=== PATIENT | male | born 1935 | race Caucasian/White ===

== ENCOUNTER 2022-02-24 00:11 | Inpatient (IN) | payer MEDICARE ==
[2022-02-24] VITALS (72 sets, daily range): BP systolic 76–201; BP diastolic 33–127
[~2022-02-24] VITALS: Ht 177.8 cm; Wt 58.1 kg
--- NOTE | 2022-02-24 00:13 | NUR ---
FREDO LI [phone]
--- NOTE | 2022-02-24 00:18 | NUR ---
[id number] FROM SNF FOR FAILURE TO THRIVE. REFUSING TO EAT AND DRINK COVID POSITIVE 02/18/22 W/ LEFT LEG PAIN S/P DVT. PATIENT ALERT AND ORIENTED X2/3 BROUGHT IN BY STRETCHER. IN BED 06 ON MONITOR AND POX AWAITING MD FERNANDO.
[2022-02-24] MEDS ORDERED: DILTIAZEM HCL 50 MG IV ONE (00:22)
--- NOTE | 2022-02-24 00:25 | NUR ---
COVID SWAB DONE AND SENT TO LAB
--- NOTE | 2022-02-24 00:25 | NUR ---
BLOOD COLLECTED AND SENT TO LAB
--- NOTE | 2022-02-24 00:25 | NUR ---
EMT AT BEDSIDE FOR EKG
--- NOTE | 2022-02-24 00:28 | NUR ---
BLOOD CULTURES COLLECTED AND SENT TO LAB
[2022-02-24] MEDS ORDERED: DILTIAZEM HCL 50 MG IV IV ONE (00:30)
[2022-02-24] MEDS ORDERED: IV NS 0.9% 500 ML BAG IV ONE (00:30)
[2022-02-24] MEDS ORDERED: HYDROCODONE/APAP 5/325MG TABLET ONE (00:36)
[2022-02-24] MEDS ORDERED: DILTIAZEM HCL 25 MG IV ONE (00:43)
[2022-02-24 00:46] LABS: BASOPHILS % (AUTO) 0.3 % (0.0-2.0); EOSINOPHILS % (AUTO) 0.2 % (0.0-6.0); HEMATOCRIT 46 % (39-51); HEMOGLOBIN 13.8 g/dL (13.5-17.5); LYMPHOCYTES # (AUTO) 0.4 K/uL (0.8-4.8); LYMPHOCYTES % (AUTO) 6.8 % (20.0-44.0); MEAN CORPUSCULAR HGB CONC 30 g/dl (31.0-36.0); MEAN CORPUSCULAR VOLUME 96 fL (80-96); MONOCYTES # (AUTO) 0.3 K/uL (0.1-1.30); MONOCYTES % (AUTO) 4.6 % (2.0-12.0); NEUTROPHILS # (AUTO) 5.7 K/uL (1.8-8.9); NEUTROPHILS % (AUTO) 88.1 % (43.0-81.0); PLATELET COUNT (AUTO) 229 K/uL (150-450); RED BLOOD CELL COUNT(AUTO) 4.74 MIL/uL (4.5-6.0); WHITE BLOOD COUNT (AUTO) 6.4 K/uL (4.3-11.0)
--- NOTE | 2022-02-24 00:54 | NUR ---
CARDIZEM DRIP INITIATED AT 5MG/HR PER PROTOCOL FOR HR CONTROL.
[2022-02-24] MEDS ORDERED: HYDROCODONE/APAP 5/325MG TABLET PO ONE (01:00)
[2022-02-24] MEDS ORDERED: DILTIAZEM HCL IV 125 MG in IV NS 0.9% 100 ML IV PRN (01:00)
--- NOTE | 2022-02-24 01:00 | NUR ---
CARDIZEM DRIP TITRATED UP TO 10MG/HR PER PROTOCOL FOR HR 158
[2022-02-24 01:02] LABS: ALANINE AMINOTRANSFERASE 91 U/L (12-78); ALBUMIN 3.3 g/dL (3.4-5.0); ALKALINE PHOSPHATASE 191 U/L (46-116); ASPARTATE AMINOTRANSFERASE 105 U/L (15-37); BILIRUBIN,DIRECT 1.3 mg/dL (0.0-0.2); BILIRUBIN,TOTAL 2.3 mg/dL (0.2-1.0); CALCIUM, SERUM 9.1 mg/dL (8.5-10.1); CARBON DIOXIDE 26 mmol/L (21-32); CHLORIDE 108 mmol/L (98-107); CREATININE 1.1 mg/dL (0.6-1.3); GLUCOSE 95 mg/dL (74-106); POTASSIUM 4.7 mmol/L (3.5-5.1); SODIUM SERUM 143 mmol/L (136-145); TOTAL PROTEIN, SERUM 7.6 g/dL (6.4-8.2); UREA NITROGEN, BLOOD 26 mg/dL (7-18)
--- NOTE | 2022-02-24 01:05 | NUR ---
CARDIZEM DRIP TITRATED UP TO 15MG/HR PER PROTOCOL FOR HR 151
[2022-02-24] MEDS ORDERED: ASPIRIN 300 MG/SUPP.RECT RC ONE ×2 (01:30→01:49)
--- NOTE | 2022-02-24 01:32 | NUR ---
URINE COLLECTED AND SENT TO LAB
--- NOTE | 2022-02-24 02:16 | NUR ---
STAT RAD PAGED
[2022-02-24] MEDS ORDERED: HYDROCODONE/APAP 5/325MG TABLET PO PRN (02:30)
[2022-02-24] MEDS ORDERED: Z GUARD REMEDY 4 OZ OINT TP PRN (02:30)
[2022-02-24] MEDS ORDERED: MAGNESIUM HYDROXIDE 30 ML UDC PO PRN (02:30)
[2022-02-24] MEDS ORDERED: ONDANSETRON HCL/PF 4 MG/2 ML VIAL IVP PRN (02:30)
[2022-02-24] MEDS ORDERED: MAG HYDROX/AL HYDROX/SIMETH 30 ML UDC PO PRN (02:30)
[2022-02-24] MEDS ORDERED: ACETAMINOPHEN 325 MG TABLET PO PRN (02:30)
[2022-02-24] MEDS ORDERED: ZOLPIDEM TARTRATE 5 MG TABLET PO PRN (02:30)
--- NOTE | 2022-02-24 02:31 | NUR ---
CHURN DRILLER AT PT'S BEDSIDE
[2022-02-24 02:50] LABS: BILIRUBIN,URINE SMALL (NEGATIVE); COLOR,URINE DARK YELLOW (YELLOW); LEUKOCYTE ESTERASE ,URINE NEGATIVE (NEGATIVE); NITRITE, URINE NEGATIVE (NEGATIVE); PH,URINE 5.5 (5.0-8.0); PROTEIN,URINE TRACE mg/dl (NEGATIVE); UGLUCOSE NEGATIVE (NEGATIVE)
[2022-02-24 02:52] LABS: BACTERIA,URINE Rare /HPF (None Seen); RBC,URINE 0-2 /HPF (0-2); SQUAMOUS EPITHELIAL CELL,UR Moderate /HPF (None Seen); WBC,URINE 0-2 /HPF (0-3)
[2022-02-24] MEDS ORDERED: ENOXAPARIN SODIUM 60 MG/0.6 ML DISP.SYRIN SQ ONE (03:00)
[2022-02-24] MEDS ORDERED: OXYC10TA49 PO (03:11)
[2022-02-24] MEDS ORDERED: ASPI-1420 PO (03:11)
[2022-02-24] MEDS ORDERED: SENN-18 PO (03:11)
[2022-02-24] MEDS ORDERED: METO25TA6 PO (03:11)
[2022-02-24] MEDS ORDERED: APIX5TAB PO (03:11)
[2022-02-24] MEDS ORDERED: POLY119P17 PO (03:11)
[2022-02-24] MEDS ORDERED: GABA-536 PO (03:11)
[2022-02-24] MEDS ORDERED: PANT40TA2 PO (03:11)
[2022-02-24] MEDS ORDERED: ONDA4TAB5 PO (03:11)
[2022-02-24] MEDS ORDERED: BISA10SU61 RC (03:11)
[2022-02-24] MEDS ORDERED: SODI650T PO (03:11)
[2022-02-24] MEDS ORDERED: MAGN400O6 PO (03:11)
[2022-02-24] MEDS ORDERED: ATOR80TA PO (03:11)
[2022-02-24] MEDS ORDERED: NA P133E RC (03:11)
[2022-02-24] MEDS ORDERED: DEXT37.54 PO (03:11)
[2022-02-24] MEDS ORDERED: OXYC5CAP18 PO (03:11)
--- NOTE | 2022-02-24 03:12 | NUR ---
REPORT GIVEN TO DONTAE
--- NOTE | 2022-02-24 03:15 | NUR ---
CRITICAL : 499 TROPONIN, AWARE
--- NOTE | 2022-02-24 03:26 | NUR ---
PT TRANSPORTED TO ROOM 253 ON CARDIAC PER ACLS. CARDIZEM 15MG/HR INFUSING AT LF.
[2022-02-24] MEDS: DILTIAZEM HCL IV 125 MG in IV NS 0.9% 100 ML IV PRN ×3 (03:35→16:01)
--- NOTE | 2022-02-24 07:30 | NUR ---
ICU/RN PT IS RESTING .ON 3L N/C SAT O2-100%.YV-W-TZP-140-160 BPM. ON CARDIZEM DRIP.AFEBRILE .NO PAIN REPORTED AT THIS TIME.PT IS VERY WEAK.HAS BODY WOUNDS.
--- NOTE | 2022-02-24 07:38 | NUR ---
WOUND CARE CONSULT: REVIEWED CHART, NURSING DOCUMENTATION AND PHOTOS WHICH INDICATE MULTIPLE WOUNDS PRESENT ON ADMISSION INCLUDING LEFT ELBOW SCAB, STAGE 3 ULCER TO RT BUTTOCK, LEFT LATERAL LEG OPEN WOUND, LEFT ANKLE AND TOE WOUNDS ALL PRESENT ON ADMISSION. DR SONAL SANCHEZ CALLED FOR SURGICAL CONSULT AND DR HERRERA CALLED FOR DPM CONSULT. ALL SKIN PROTECTION MEASURES DISCUSSED WITH NURSING STAFF. FIRST STEP LOW AIRLOSS MATTRESS IS ON ORDER. MD IN AGREEMENT WITH PLAN OF CARE.
[2022-02-24] MEDS ORDERED: HYDROGEL DRESSING 90 GM TUBE TP PRN (08:00)
[2022-02-24] MEDS: PANTOPRAZOLE 40 MG TABLET.DR PO SCH (08:19)
[2022-02-24] MEDS: ASPIRIN EC 81 MG TABLET.DR PO SCH (08:19)
[2022-02-24] MEDS: APIXABAN 5 MG TABLET PO SCH ×2 (08:22→16:54)
[2022-02-24] MEDS ORDERED: PANTOPRAZOLE 40 MG TABLET.DR PO SCH (09:00)
[2022-02-24] MEDS: GABAPENTIN 400 MG CAPSULE PO SCH ×4 (09:10→21:01)
[2022-02-24] MEDS: HYDROGEL DRESSING 90 GM TUBE TP SCH (09:10)
[2022-02-24] MEDS ORDERED: APIXABAN 5 MG TABLET PO SCH (09:30)
[2022-02-24] MEDS: METOPROLOL TARTRATE 50 MG TABLET PO SCH ×3 (11:38→19:00)
[2022-02-24] MEDS ORDERED: ENOXAPARIN SODIUM 30 MG/0.3 ML DISP.SYRIN SQ SCH (21:00)
[2022-02-24] MEDS ORDERED: ATORVASTATIN 40 MG TABLET PO SCH (22:00)
--- NOTE | 2022-02-24 23:32 | NUR ---
MED NOTE: CARDIZEM DRIP TITRATED DOWN AND CURRENTLY ON HOLD. PT HEART RATE 70-80 BPM STILL AFIB.
[2022-02-25] VITALS (34 sets, daily range): BP systolic 85–151; BP diastolic 34–78
[2022-02-25 03:12] LABS: BASOPHILS % (AUTO) 0.1 % (0.0-2.0); HEMATOCRIT 33 % (39-51); HEMOGLOBIN 10.6 g/dL (13.5-17.5); LYMPHOCYTES # (AUTO) 0.4 K/uL (0.8-4.8); LYMPHOCYTES % (AUTO) 5.2 % (20.0-44.0); MEAN CORPUSCULAR HGB CONC 32 g/dl (31.0-36.0); MEAN CORPUSCULAR VOLUME 94 fL (80-96); MONOCYTES # (AUTO) 0.5 K/uL (0.1-1.30); MONOCYTES % (AUTO) 7.8 % (2.0-12.0); NEUTROPHILS % (AUTO) 86.9 % (43.0-81.0); PLATELET COUNT (AUTO) 236 K/uL (150-450); RED BLOOD CELL COUNT(AUTO) 3.55 MIL/uL (4.5-6.0); WHITE BLOOD COUNT (AUTO) 6.9 K/uL (4.3-11.0)
[2022-02-25 03:40] LABS: CHOLESTEROL 84 mg/dL (<200); HDL CHOLESTEROL 27 mg/dL (40-60); LDL 55 mg/dL (0-99); THYROID STIMULATING HORMONE 6.274 uIU/mL (0.358-3.74); TRIGLYCERIDES 97 mg/dL (30-150)
[2022-02-25 04:26] LABS: ALANINE AMINOTRANSFERASE 123 U/L (12-78); ALBUMIN 2.4 g/dL (3.4-5.0); ALKALINE PHOSPHATASE 154 U/L (46-116); ASPARTATE AMINOTRANSFERASE 115 U/L (15-37); BILIRUBIN,DIRECT 1.3 mg/dL (0.0-0.2); CALCIUM, SERUM 8.5 mg/dL (8.5-10.1); CARBON DIOXIDE 23 mmol/L (21-32); CHLORIDE 112 mmol/L (98-107); CREATININE 1.2 mg/dL (0.6-1.3); GLUCOSE 144 mg/dL (74-106); MAGNESIUM 2.6 mg/dL (1.8-2.4); PHOSPHORUS 3.3 mg/dL (2.5-4.9); POTASSIUM 4.1 mmol/L (3.5-5.1); SODIUM SERUM 145 mmol/L (136-145); TOTAL PROTEIN, SERUM 5.9 g/dL (6.4-8.2); UREA NITROGEN, BLOOD 35 mg/dL (7-18)
[2022-02-25] MEDS: METOPROLOL TARTRATE 50 MG TABLET PO SCH ×4 (06:16→17:16)
--- NOTE | 2022-02-25 08:10 | NUR ---
ICU/RN PT IS ON 3L N/C SAT O2-100%.V/S STABLE,AFEBRILE.NO PAIN REPORTED AT THIS TIME.A FIB ON MONITOR 90-110 BPM. OFF CARDIZEM DRIP.PT REFUSED TO EAT BREAKFAST. INCONTINENT IN DIAPER.POSITIVE FOR DVT ON BLE .LEFT LOWER LEG WOUNDS COVERED WITH DRESSING.LABS REVIEW.MD AWARE.REPOSITION FOR COMFORT.CONTINUE MONITORING,
[2022-02-25] MEDS: PANTOPRAZOLE 40 MG TABLET.DR PO SCH (08:13)
[2022-02-25] MEDS: GABAPENTIN 400 MG CAPSULE PO SCH ×4 (08:13→21:00)
[2022-02-25] MEDS: APIXABAN 5 MG TABLET PO SCH ×2 (08:13→16:30)
[2022-02-25] MEDS: ASPIRIN EC 81 MG TABLET.DR PO SCH (08:13)
[2022-02-25] MEDS: HYDROGEL DRESSING 90 GM TUBE TP SCH (08:14)
[2022-02-25] MEDS: DIGOXIN INJ 0.5 MG/2 ML AMPUL IV SCH ×3 (09:11→21:28)
[2022-02-25 09:53] LABS: IRON, SERUM 15 ug/dl (50-175); TOTAL IRON BINDING CAPACITY 189 ug/dl (250-450)
[2022-02-25] MEDS: ENSURE ENLIVE CHOC 237 ML CAN PO SCH (16:31)
--- NOTE | 2022-02-25 16:32 | NUR ---
ICU/RN PM CARE PROVIDED .WOUND DRESSING DONE ORDERED.PATIENT REFUSED PO MEDS AND FOOD.MD AWARE. OK TRANSFER PATIENT TO TELE UNIT. VS STABLE, AFEBRILE,NO PAIN REPORTED AT THIS TIME.
--- NOTE | 2022-02-25 17:00 | NUR ---
ICU/RN PT TRANSFERRED TO TELE UNIT.REPORT GIVEN TO PEARL/WILLIS
--- NOTE | 2022-02-25 17:16 | NUR ---
RN NOTE PT RECEIVED FROM ICU, IN BED, AWAKE. PT ON 3L O2 NC WITH NO SIGNS OF LABORED BREATHING AT THIS TIME, SAT WELL ON MONITOR. VITAL SIGNS STABLE. PT REFUSES MEDICATION AND FOOD AT THIS TIME.
--- NOTE | 2022-02-25 20:01 | NUR ---
LEAD SECTION SUPERVISOR OPENING NOTE RECEIVED PATIENT IN BED IN A/OX1-2. NO S/S OF APPARENT DISTRESS IN 3LPM OF O2 VIA NC-- SATURATING 99%. READING A-FIB IN CONTROLLED RATE. DENIES PAIN AT THIS TIME. NO FLUIDS RUNNING AT THIS TIME. LERMA CATHETER IN PLACE DRAINING DARK YELLOW URINE. RE-ORIENTED WITH THE USE OF CALL LIGHT. SAFETY IN PLACE. WILL CONTINUE TO MONITOR PATIENT.
--- NOTE | 2022-02-25 21:44 | NUR ---
SPANISH TEACHER NOTE SCHEDULED NEURONTIN 400 MG UNABLE TO GIVE FULL DOSE HENCE NON-ADMINISTERED. PATIENT FAILED NURSING SWALLOW EVEL. PATIENT HOB ELEVATED ALL THE WAY UP AND SUCTIONED AFTERWARDS. OPENED NEURONTIN CAPSULE DISCARDED.
[2022-02-26] VITALS: BP 105/79
[2022-02-26 04:00] VITALS: BP 105/54
[2022-02-26] MEDS: METOPROLOL TARTRATE 50 MG TABLET PO SCH ×4 (06:00→17:32)
[2022-02-26 06:43] LABS: BASOPHILS % (AUTO) 0.4 % (0.0-2.0); HEMATOCRIT 36 % (39-51); LYMPHOCYTES # (AUTO) 0.1 K/uL (0.8-4.8); LYMPHOCYTES % (AUTO) 1.9 % (20.0-44.0); MEAN CORPUSCULAR HGB CONC 31 g/dl (31.0-36.0); MEAN CORPUSCULAR VOLUME 94 fL (80-96); MONOCYTES # (AUTO) 0.4 K/uL (0.1-1.30); NEUTROPHILS # (AUTO) 5.1 K/uL (1.8-8.9); NEUTROPHILS % (AUTO) 90.7 % (43.0-81.0); PLATELET COUNT (AUTO) 154 K/uL (150-450); WHITE BLOOD COUNT (AUTO) 5.6 K/uL (4.3-11.0)
--- NOTE | 2022-02-26 06:56 | NUR ---
DOCUMENT PREPARER MICROFILMING CLOSING NOTE PATIENT IN BED, WITH NO SIGNIFICANT CHANGE. STILL A-FIB IN THE MONITOR IN CONTROLLED RATE. NEEDS ATTENDED. NOW IN CONDOM CATHETER AND AIR MATTRESS. SAFETY KEPT IN PLACE THE WHOLE SHIFT. WILL ENDORSE TO MORNING SHIFT RN FOR CONTINUITY OF CARE.
[2022-02-26 07:07] LABS: ALBUMIN 2.2 g/dL (3.4-5.0); BILIRUBIN,TOTAL 1.7 mg/dL (0.2-1.0); CALCIUM, SERUM 8.4 mg/dL (8.5-10.1); CREATININE 0.9 mg/dL (0.6-1.3); MAGNESIUM 2.5 mg/dL (1.8-2.4); PHOSPHORUS 2.7 mg/dL (2.5-4.9); POTASSIUM 3.8 mmol/L (3.5-5.1); TOTAL PROTEIN, SERUM 5.6 g/dL (6.4-8.2)
--- NOTE | 2022-02-26 07:15 | NUR ---
ms rn received on bed, awake,oriented x1,afib on monitor,butterfield cath to gravity w/ yellowish urine output, 3 liters on nasal cannula,saturating 95%, denies oain at this time, repositioned for comfort,will monitor patient's condition.
[2022-02-26 08:00] VITALS: BP 94/54
[2022-02-26] MEDS: GABAPENTIN 400 MG CAPSULE PO SCH ×4 (08:03→20:12)
[2022-02-26] MEDS: PANTOPRAZOLE 40 MG TABLET.DR PO SCH (08:03)
[2022-02-26] MEDS: ASPIRIN EC 81 MG TABLET.DR PO SCH (08:03)
[2022-02-26] MEDS: APIXABAN 5 MG TABLET PO SCH ×2 (08:05→16:41)
[2022-02-26] MEDS: ENSURE ENLIVE CHOC 237 ML CAN PO SCH ×2 (08:06→16:12)
--- NOTE | 2022-02-26 08:30 | NUR ---
ms magallon breakfast served,due meds given, crushed meds tolerated well.
[2022-02-26] MEDS: HYDROGEL DRESSING 90 GM TUBE TP SCH (09:11)
--- NOTE | 2022-02-26 10:00 | NUR ---
ms rn soeech therapy eval done, puree diet w/ nectar thick recommended.
--- NOTE | 2022-02-26 11:55 | NUR ---
ms rn girlfriend called for updates.
[2022-02-26 12:00] VITALS: BP 104/66
[2022-02-26] MEDS: DIGOXIN INJ 0.5 MG/2 ML AMPUL IV SCH ×2 (12:59→17:32)
[2022-02-26 16:00] VITALS: BP 109/83
--- NOTE | 2022-02-26 16:40 | NUR ---
ms rn on bed,no distress noted,all needs attended.
--- NOTE | 2022-02-26 19:00 | NUR ---
ms rn on bed, no distress noted,all needs attended.
--- NOTE | 2022-02-26 19:33 | NUR ---
GLOBAL CHIEF EXPERIENCE OFFICER OPENING NOTE RECEIVED PATIENT IN BED WITH EYES CLOSED.ON 3LPM OF O2 VIA NC SATTING 94%.NO SIGN SOB/DISTRESS NOTED.NO SIGN OF PAIN/DISCOMFORT AT THIS TIME.PT IN COMFORTABLE POSITON HOB ELEVATED.LERMA CATHETER IN PLACE DRAINING DARK YELLOW URINE.NO ODOR/ABD DISTENSION NOTED.. SAFETY MEASURE IN PLACE.CALL LIGHT WITHIN REACH.WILL CONTINUE TO MONITOR.
[2022-02-26 20:00] VITALS: BP 104/56
[2022-02-27] VITALS: BP 107/61
[2022-02-27] MEDS: DIGOXIN INJ 0.5 MG/2 ML AMPUL IV SCH (00:36)
[2022-02-27] MEDS: METOPROLOL TARTRATE 50 MG TABLET PO SCH ×5 (00:36→23:02)
[2022-02-27 04:00] VITALS: BP 112/63
--- NOTE | 2022-02-27 06:18 | NUR ---
CASINO SLOT SUPERVISOR CLOSING NOTE;106 PATIENT IN BED WITH EYES CLOSED.ON 3LPM OF O2 VIA NC SATTING 94%.NO SIGN SOB/DISTRESS NOTED.NO SIGN OF PAIN/DISCOMFORT AT THIS TIME.DUE MEDS GIVEN ORDERED.ALL NEEDS ATTENDED.PT IN COMFORTABLE POSITON HOB ELEVATED.LERMA CATHETER IN PLACE DRAINING CONCHIS URINE OUTPUT 300ML.NO ODOR/ABD DISTENSION NOTED.. SAFETY MEASURE IN PLACE.CALL LIGHT WITHIN REACH.WILL ENDORSED TO NEXT SHIFT.
[2022-02-27 06:45] LABS: BASOPHILS % (AUTO) 0.1 % (0.0-2.0); HEMATOCRIT 41 % (39-51); HEMOGLOBIN 12.4 g/dL (13.5-17.5); LYMPHOCYTES # (AUTO) 0.2 K/uL (0.8-4.8); LYMPHOCYTES % (AUTO) 2.8 % (20.0-44.0); MEAN CORPUSCULAR HGB CONC 30 g/dl (31.0-36.0); MEAN CORPUSCULAR VOLUME 97 fL (80-96); MONOCYTES # (AUTO) 0.7 K/uL (0.1-1.30); MONOCYTES % (AUTO) 9.9 % (2.0-12.0); NEUTROPHILS # (AUTO) 6.1 K/uL (1.8-8.9); NEUTROPHILS % (AUTO) 87.2 % (43.0-81.0); PLATELET COUNT (AUTO) 148 K/uL (150-450); RED BLOOD CELL COUNT(AUTO) 4.29 MIL/uL (4.5-6.0)
[2022-02-27 07:02] LABS: ALANINE AMINOTRANSFERASE 196 U/L (12-78); ALBUMIN 2.2 g/dL (3.4-5.0); ALKALINE PHOSPHATASE 163 U/L (46-116); ASPARTATE AMINOTRANSFERASE 176 U/L (15-37); BILIRUBIN,TOTAL 1.6 mg/dL (0.2-1.0); CALCIUM, SERUM 8.3 mg/dL (8.5-10.1); CARBON DIOXIDE 25 mmol/L (21-32); CHLORIDE 121 mmol/L (98-107); CREATININE 0.9 mg/dL (0.6-1.3); GLUCOSE 107 mg/dL (74-106); MAGNESIUM 2.5 mg/dL (1.8-2.4); PHOSPHORUS 2.8 mg/dL (2.5-4.9); POTASSIUM 3.8 mmol/L (3.5-5.1); SODIUM SERUM 154 mmol/L (136-145); TOTAL PROTEIN, SERUM 5.8 g/dL (6.4-8.2); UREA NITROGEN, BLOOD 32 mg/dL (7-18)
--- NOTE | 2022-02-27 07:33 | NUR ---
DIE CAST PATTERNMAKER OPENING NOTES: RECEIVED PATIENT IN BED, ASLEEP BUT EASILY AROUSES TO VOICE AND TOUCH. PATIENT IS ALERT AND ORIENTED X 1. NO SOB NOTED. ON OXYGEN @ 3L/MIN VIA NC SATING @ 100%. BREATHING EVEN AND UNLABORED. ON AFIB WITH HR OF 78 ON TELE MONITOR. HAS IV ACCESS ON RIGHT UPPER ARM MIDLINE, FLUSHING WELL, NO S/S OF INFILTRATION. BED LOCKED AND IN LOWEST POSITION. CALL LIGHT WITHIN REACH. ALL SAFETY MEASURES IMPLEMENTED. WILL CONTINUE TO MONITOR THROUGHOUT SHIFT.
[2022-02-27] MEDS: PANTOPRAZOLE 40 MG TABLET.DR PO SCH (07:57)
[2022-02-27 08:00] VITALS: BP 100/50
[2022-02-27] MEDS: ASPIRIN EC 81 MG TABLET.DR PO SCH (08:01)
[2022-02-27] MEDS: APIXABAN 5 MG TABLET PO SCH ×2 (08:03→17:08)
[2022-02-27] MEDS: ENSURE ENLIVE CHOC 237 ML CAN PO SCH ×2 (08:04→17:09)
[2022-02-27] MEDS: GABAPENTIN 400 MG CAPSULE PO SCH ×4 (08:04→20:57)
[2022-02-27] MEDS: HYDROGEL DRESSING 90 GM TUBE TP SCH (08:05)
[2022-02-27 12:00] VITALS: BP 110/63
--- NOTE | 2022-02-27 15:15 | NUR ---
HAD A MISSED CALL FROM FREDO LI. CALLED HER @ AND LEFT MESSAGE FOR HER TO PLEASE RETURN MY CALL
[2022-02-27 16:00] VITALS: BP 107/64
--- NOTE | 2022-02-27 16:45 | NUR ---
FREDO LI CALLED BACK AND UPDATED ON PATIENT'S STABLE CONDITION.
--- NOTE | 2022-02-27 18:48 | NUR ---
LINEMAN CLOSING NOTES: PATIENT IN BED ASLEEP BUT EASILY AROUSES TO VOICE. PATIENT ON 3L OF OXYGEN VIA N/C WITH OXYGEN SATURATION OF 100%. NO SOB NOTED, BREATHING EVEN AND UNLABORED. PATIENT IS ON CONTROLLED A-FIB WITH HR OF 80 ON TELE MONITOR. CONDOM CATH INTACT, EMPTIED 300 ML OF CONCHIS URINE, NO SEDIMENTATION NOTED. PATIENT HAS SALINE LOCK ON RIGHT UPPER ARM MIDLINE, PATENT, FLUSHING WELL AND NO S/S OF INFILTRATION. DRESSING ON SACRAL AREA INTACT, CLEAN AND DRY WELL DRESSING ON LEFT LEG, WHICH IS INTACT AND NO BLEEDING NOTED. HOB KEPT ELEVATED, SR UP X3, CALL LIGHT WITHIN REACH, ALL SAFETY MEASURES IMPLEMENTED. WILL ENDORSE TO NEXT SHIFT NURSE FOR CONTINUITY OF CARE
--- NOTE | 2022-02-27 19:45 | NUR ---
CEO AND FOUNDER OPENING NOTES RECEIVED PATIENT IN BED, ASLEEP BUT EASILY AROUSABLE TO VOICE AND TOUCH. PATIENT IS ALERT AND ORIENTED X 1. NO SOB NOTED. ON OXYGEN @ 3L/MIN VIA NC SATING @ 98%. BREATHING EVEN AND UNLABORED. ON AFIB WITH HR OF 68 ON TELE MONITOR. HAS IV ACCESS ON RIGHT UPPER ARM MIDLINE, INTACT, PATENT, AND FLUSHING WELL, NO S/S OF INFILTRATION. BED LOCKED AND IN LOWEST POSITION. CALL LIGHT WITHIN REACH. WILL CONTINUE TO MONITOR THROUGHOUT SHIFT.
[2022-02-27 20:00] VITALS: BP 110/65
--- NOTE | 2022-02-27 20:00 | NUR ---
RN NOTE PT DESATING AT LOW 80'S. RT AT BEDSIDE, CHANGE NC TO SIMPLE MASK. NOW PATIENT BACK SATING AT 100%.
--- NOTE | 2022-02-27 20:31 | NUR ---
RN NOTE NOTED PT TEMP AT 99.5. COOLING MEASURES PROVIDED, WILL RECHECK IN 30 MINS FOR ANY CHANGES.
[2022-02-27 20:37] LABS: LIPASE 435 U/L (73-393)
--- NOTE | 2022-02-27 21:05 | NUR ---
RN NOTE TEMPERATURE RECHECKED AT 98.8. WILL CONT TO MONITOR.
[2022-02-28] VITALS: BP 122/75
[2022-02-28 04:00] VITALS: BP 123/71
[2022-02-28] MEDS: METOPROLOL TARTRATE 50 MG TABLET PO SCH ×3 (05:08→16:44)
--- NOTE | 2022-02-28 06:55 | NUR ---
BOARD SAW RUNNER CLOSING NOTES PATIENT IN BED A/O X1. NON VERBAL, ON O2 VIA SIMPLE MASK AT 10 L CURRENTLY SATING 92%. BREATHING EVEN AND UNLABORED. HOB ELEVATED FOR MAXIMUM LUNG EXPANSION, ON AFIB WITH PVC'S HR OF 104 ON TELE MONITOR. HAS IV ACCESS ON RIGHT UPPER ARM MIDLINE, INTACT, PATENT, AND FLUSHING WELL, NO S/S OF INFILTRATION. BED LOCKED AND IN LOWEST POSITION. ALL NEEDS ATTENDED, CALL LIGHT WITHIN REACH. WILL ENDORSE TO AM SHIFT NURSE.
[2022-02-28 07:12] LABS: BASOPHILS % (AUTO) 0.2 % (0.0-2.0); HEMATOCRIT 41 % (39-51); HEMOGLOBIN 12.3 g/dL (13.5-17.5); LYMPHOCYTES # (AUTO) 0.3 K/uL (0.8-4.8); LYMPHOCYTES % (AUTO) 4.3 % (20.0-44.0); MEAN CORPUSCULAR HGB CONC 30 g/dl (31.0-36.0); MEAN CORPUSCULAR VOLUME 97 fL (80-96); MONOCYTES # (AUTO) 0.7 K/uL (0.1-1.30); MONOCYTES % (AUTO) 11.4 % (2.0-12.0); NEUTROPHILS # (AUTO) 5.3 K/uL (1.8-8.9); NEUTROPHILS % (AUTO) 84.1 % (43.0-81.0); PLATELET COUNT (AUTO) 138 K/uL (150-450); RED BLOOD CELL COUNT(AUTO) 4.26 MIL/uL (4.5-6.0); WHITE BLOOD COUNT (AUTO) 6.3 K/uL (4.3-11.0)
--- NOTE | 2022-02-28 07:25 | NUR ---
RN OPENING NOTES RECEIVED PATIENT IN BED, ASLEEP BUT EASILY AROUSABLE TO VOICE AND TOUCH. PATIENT IS ALERT AND ORIENTED X 1. NO SOB NOTED. ON OXYGEN @ 10L/MIN VIA NC SATING @ 98%. BREATHING EVEN AND UNLABORED. ON AFIB WITH HR OF 68 ON TELE MONITOR. HAS IV ACCESS ON RIGHT UPPER ARM MIDLINE, INTACT, PATENT, AND FLUSHING WELL, NO S/S OF INFILTRATION. BED LOCKED AND IN LOWEST POSITION. CALL LIGHT WITHIN REACH. WILL CONTINUE TO MONITOR THROUGHOUT SHIFT. Addendum: 02/28/22 at 0727 by LUIS ALBERTO AGUILAR RN RN OPENING NOTES RECEIVED PATIENT IN BED, ASLEEP BUT EASILY AROUSABLE TO VOICE AND TOUCH. PATIENT IS ALERT AND ORIENTED X 1. NO SOB NOTED. ON OXYGEN @ 10L/MIN VIA NC SATING @ 92%. BREATHING EVEN AND UNLABORED. ON AFIB ON TELE MONITOR. HAS IV ACCESS ON RIGHT UPPER ARM MIDLINE, INTACT, PATENT, AND FLUSHING WELL, NO S/S OF INFILTRATION. BED LOCKED AND IN LOWEST POSITION. CALL LIGHT WITHIN REACH.
[2022-02-28] MEDS: PANTOPRAZOLE 40 MG TABLET.DR PO SCH ×2 (07:30→08:05)
[2022-02-28 07:39] LABS: ALBUMIN 2.1 g/dL (3.4-5.0); BILIRUBIN,TOTAL 1.6 mg/dL (0.2-1.0); CALCIUM, SERUM 8.5 mg/dL (8.5-10.1); CREATININE 0.9 mg/dL (0.6-1.3); MAGNESIUM 2.7 mg/dL (1.8-2.4); PHOSPHORUS 2.8 mg/dL (2.5-4.9); POTASSIUM 3.8 mmol/L (3.5-5.1); TOTAL PROTEIN, SERUM 5.9 g/dL (6.4-8.2)
[2022-02-28 08:00] VITALS: BP 107/68
[2022-02-28] MEDS: ENSURE ENLIVE CHOC 237 ML CAN PO SCH ×3 (08:00→16:45)
[2022-02-28] MEDS: ASPIRIN EC 81 MG TABLET.DR PO SCH ×2 (08:05→08:19)
[2022-02-28] MEDS: GABAPENTIN 400 MG CAPSULE PO SCH ×5 (08:05→21:00)
[2022-02-28] MEDS: HYDROGEL DRESSING 90 GM TUBE TP SCH (08:06)
[2022-02-28] MEDS: APIXABAN 5 MG TABLET PO SCH ×3 (08:06→16:43)
--- NOTE | 2022-02-28 09:30 | NUR ---
RN NOTE ATTEMPETED TO ADMINISTER AM MEDICATION, PATIENT REFUSED MEDICATION, EDUCATED PATIENT ON IMPORTANCE OF MEDICATION PT REFUSED. PATIENT STATED HE WANTED TO BE LEFT ALONE.
[2022-02-28 12:00] VITALS: BP 118/73
--- NOTE | 2022-02-28 15:34 | NUR ---
RN NOTE PER DENTAL RESIDENTTRAVEL JOURNALIST COVID ANTIGEN RAPID TEST, DUE TO POSSIBLE DC ORDER PLACED TEST DONE.
[2022-02-28 16:00] VITALS: BP 140/75
[2022-02-28] MEDS: DEXAMETHASONE SOD PHOSPHATE 10 MG/ML VIAL IV SCH (16:42)
--- NOTE | 2022-02-28 18:19 | NUR ---
NM HIDA SCAN WAS COMPLETED: TECH:RB
--- NOTE | 2022-02-28 18:42 | NUR ---
RN NOTE PATIENT NOTED TO DESATURATE TO 75 PERCENT, CALLED RT PATIENT PLACED ON 1OL SIMPLE MASK. O2 SAT 02 SAT 90 PERCENT
--- NOTE | 2022-02-28 19:00 | NUR ---
STEAM TABLE WORKER CLOSING NOTES PATIENT IN BED A/O X1. NON VERBAL, ON O2 VIA SIMPLE MASK AT 15 L CURRENTLY SATING 90%. BREATHING EVEN AND UNLABORED. HOB ELEVATED FOR MAXIMUM LUNG EXPANSION, ON AFIB WITH PVC'S HR OF 104 ON TELE MONITOR. HAS IV ACCESS ON RIGHT UPPER ARM MIDLINE, INTACT, PATENT, AND FLUSHING WELL, NO S/S OF INFILTRATION. BED LOCKED AND IN LOWEST POSITION. ALL NEEDS ATTENDED, CALL LIGHT WITHIN REACH. WILL ENDORSE TO PM SHIFT NURSE.
--- NOTE | 2022-02-28 19:40 | NUR ---
TRN OPENING NOTES RECEIVED PATIENT IN BED, BOTH EYES CLOSED, A/O X1. NON VERBAL AND RESPONSIVE TO PAINFUL STIMULI. PT APPEARED TO BE LETHARGIC. ON O2 VIA SIMPLE MASK AT 15 L/MIN, O2 SAT 88%. HOB ELEVATED. ON AFIB WITH PVC'S HR OF 112 ON TELE MONITOR. IV ACCESS ON RIGHT UPPER ARM MIDLINE INTACT AND PATENT. NO S/S OF INFILTRATIONS. NO FACIAL GRIMACING NOTED. NO ACUTE DISTRESS. LERMA CATHETER IN PLACE. DRAINING BY GRAVITY. ISOLATION PRECAUTION IN PLACE. ALL SAFETY PRECAUTION IN PLACE. BED IN LOWEST POSITION AND LOCKED. SIDE RAILS UP X3, PLACE CALL LIGHT WITHIN REACH. WILL CONTINUE TO MONITOR
[2022-02-28 20:00] VITALS: BP 138/116
--- NOTE | 2022-02-28 21:32 | NUR ---
RN NOTES: UNABLE TO ADMINISTERED ROUTINE MED NEURONTIN. PT APPEARED TO BE LETHARGIC, NOT FOLLOWING ANY DIRECTION. HOLD THE MEDICATION. WILL CONTINUE TO MONITOR
[2022-03-01] VITALS (10 sets, daily range): BP systolic 53–152; BP diastolic 31–111
--- NOTE | 2022-03-01 00:48 | NUR ---
RN NOTES: UNABLE TO ADMINISTERED ROUTINE MED LOPRESSOR. PT STILL VERY LETHARGIC, OPEN EYES WITH PAINFUL STIMULI. NOT FOLLOWING ANY DIRECTION. HOLD THE MEDICATION. PT IS ON VENTURI MASK WITH 12L, 40%. O2 SATING FLUCTUATING BETWEEN 78-86%. LEFT MESSAGE TO NORMA BETANCOURT. WAITING FOR CALL BACK. WILL CONTINUE TO MONITOR
--- NOTE | 2022-03-01 01:33 | NUR ---
RN NOTES: DR. GREEN CALLED BACK WITH ORDER FOR STAT ABG, CHEST X-RAY STAT AND HIGH FLOW O2 INITIAL, TITRATE FIO2 TO KEEP O2 ABOVE 90%. . ORDERS NOTED AND CARRIED OUT.
[2022-03-01 01:34] LABS: ABG BASE EXCESS -1.1 mmol/L; ABG OXYGEN SATURATION 94.5 % (92.0-98.5); ABG PH 7.524 (7.350-7.450); ABG PO2 72.5 mmHg (75.0-100.0); COHb 0.7 % (0.5-1.5); MetHb 0.1 % (0.0-1.5); O2Hb 93.7 % (94.0-97.0); SITE, ABG Right Radial; VENT MODE, BG VENTURI MASK 40%
--- NOTE | 2022-03-01 02:07 | NUR ---
0207 Dr. Cox came and saw patient, updated her on patient's latest condition, made her aware that patient is breathing better after being repositioned, O2 saturation at 97%, she said cont to monitor patient.
[2022-03-01] MEDS: METOPROLOL TARTRATE 50 MG TABLET PO SCH ×4 (06:00→18:00)
[2022-03-01 06:06] LABS: BASOPHILS % (AUTO) 0.4 % (0.0-2.0); HEMATOCRIT 39 % (39-51); LYMPHOCYTES # (AUTO) 0.3 K/uL (0.8-4.8); LYMPHOCYTES % (AUTO) 2.5 % (20.0-44.0); MEAN CORPUSCULAR HGB CONC 31 g/dl (31.0-36.0); MEAN CORPUSCULAR VOLUME 94 fL (80-96); MONOCYTES # (AUTO) 0.9 K/uL (0.1-1.30); MONOCYTES % (AUTO) 7.7 % (2.0-12.0); NEUTROPHILS % (AUTO) 89.4 % (43.0-81.0); PLATELET COUNT (AUTO) 169 K/uL (150-450); RED BLOOD CELL COUNT(AUTO) 4.17 MIL/uL (4.5-6.0); WHITE BLOOD COUNT (AUTO) 11.2 K/uL (4.3-11.0)
--- NOTE | 2022-03-01 06:48 | NUR ---
RN CLOSING NOTES: PATIENT IN BED, BOTH EYES CLOSED, A/O X1. NON VERBAL AND RESPONSIVE TO PAINFUL STIMULI. NOTED LESS LETHARGIC. ON O2 VIA VENTURI MASK AT 15 L/MIN, 50%. O2 SAT 88%. HOB ELEVATED. ON AFIB WITH PVC'S HR OF 112 ON TELE MONITOR. IV ACCESS ON RIGHT UPPER ARM MIDLINE INTACT AND PATENT. NO S/S OF INFILTRATIONS. NO FACIAL GRIMACING NOTED. NO ACUTE DISTRESS. LERMA CATHETER IN PLACE. DRAINING BY GRAVITY. LOPRESSOR ON HOLD DUE TO LOW BP-93/61, PULSE-112. ISOLATION PRECAUTION IN PLACE. ALL SAFETY PRECAUTION IN PLACE. BED IN LOWEST POSITION AND LOCKED. SIDE RAILS UP X3, PLACE CALL LIGHT WITHIN REACH. WILL ENDORSE TO MORNING SHIFT NURSE.
[2022-03-01] MEDS ORDERED: IV D5W 1,000 ML IV SCH (07:00)
--- NOTE | 2022-03-01 07:00 | NUR ---
RN NOTE PATIENT RECEIVED IN BED, ASLEEP BUT OPENS EYES TO TOUCH AND VERBAL STIMULI. WITH OXYGEN VIA VENTURI MASK AT 15 L/MIN, FIO2 50%. NOTED SHORTNESS OF BREATH, OXYGEN SATURATION AT 98%. EDEMA NOTED ON BOTH LOWER EXTREMITIES. RIGHT UPPER ARM MIDLINE LOCK INTACT AND PATENT. A-FIB IN RVR ON BROWNFIELD REDEVELOPMENT SITE MANAGER. BED IS LOCKED IN LOWEST POSITION, 3 SIDE RAILS UP, CALL LIGHT WITHIN REACH. WILL CONTINUE TO MONITOR THROUGHOUT SHIFT.
[2022-03-01] MEDS: PANTOPRAZOLE 40 MG TABLET.DR PO SCH (07:30)
[2022-03-01] MEDS ORDERED: IV NS 0.9% 500 ML IV ONE ×2 (08:00→10:00)
[2022-03-01] MEDS: ENSURE ENLIVE CHOC 237 ML CAN PO SCH ×2 (08:00→17:00)
--- NOTE | 2022-03-01 08:00 | NUR ---
patient nonresponsive to verbal/tactile stimuli,sbp 50's,w/ shallow breathing,rapid response called ,dr. mcfarland notified.
--- NOTE | 2022-03-01 08:00 | NUR ---
RN NOTE NOTED PATIENT TO BE UNRESPONSIVE TO TOUCH, VERBAL AND PAINFUL STIMULI. BP AT 53/35. WEAK PULSES. OXYGEN SATURATION AT 98%. CHARGE NURSE INFORMED. DR. JAMIL INFORMED WITH ORDERS MADE AND CARRIED OUT. RAPID RESPONSE CALLED. IV BOLUS OF 1000 NSS GIVEN. PATIENT TRANSFERRED TO ICU, REPORT GIVEN TO GA FOR CONTINUITY OF CARE.
--- NOTE | 2022-03-01 08:01 | NUR ---
bolus initiated as ordered by dr. mcfarland, icu nurse ,rt nursing sup at bedside for hydrodynamicist.
[2022-03-01 08:07] LABS: ABG BASE EXCESS -2.5 mmol/L; ABG OXYGEN SATURATION 94.8 % (92.0-98.5); ABG PCO2 22.6 mmHg (35.0-45.0); ABG PH 7.529 (7.350-7.450); AaDO2 329.9 mmHg; COHb 0.6 % (0.5-1.5); MetHb 0.2 % (0.0-1.5); SITE, ABG Right Radial; VENT MODE, BG 10L SIMPLE MASK
--- NOTE | 2022-03-01 08:10 | NUR ---
transferred to icu for close monitoring oer dr. mcfarland ordered.
--- NOTE | 2022-03-01 08:10 | NUR ---
RN NOTES PATIENT WAS TRANSFERRED FROM [facility] AT THIS TIME ON Dx OF HYPOTENSION, AND AFIB, HR-135, AFIB, T-97.7F, BP-119/78, PATIENT ON NON REBREATHER MASK 15L. SEEN PRIMING MACHINE OPERATOR Janeth JAMIL, AND Dr ANTONIO PILOT PLANT RESEARCH TECHNICIAN , ABG DONE BICARB IS -20, RT'S ARE NEXT TO THE BED. PATIENT NOT RESPONDING CALLS, OR PAIN. INFUSING NS @500 ML BOLUS, AND D5W @50ML/HR ON SAMIR MIDLINE INTACT. WILL MONITORING.
[2022-03-01] MEDS: DEXAMETHASONE SOD PHOSPHATE 10 MG/ML VIAL IV SCH (08:41)
[2022-03-01] MEDS: GABAPENTIN 400 MG CAPSULE PO SCH ×4 (08:41→22:21)
[2022-03-01] MEDS: HYDROGEL DRESSING 90 GM TUBE TP SCH (08:41)
[2022-03-01] MEDS: ASPIRIN EC 81 MG TABLET.DR PO SCH (08:42)
[2022-03-01 08:58] LABS: ALBUMIN 1.9 g/dL (3.4-5.0); BILIRUBIN,DIRECT 1.2 mg/dL (0.0-0.2); BILIRUBIN,TOTAL 1.7 mg/dL (0.2-1.0); TOTAL PROTEIN, SERUM 5.7 g/dL (6.4-8.2)
[2022-03-01 08:58] LABS: CALCIUM, SERUM 8.6 mg/dL (8.5-10.1); CREATININE 1.6 mg/dL (0.6-1.3); GLUCOSE 113 mg/dL (74-106); MAGNESIUM 2.6 mg/dL (1.8-2.4); PHOSPHORUS 3.1 mg/dL (2.5-4.9); UREA NITROGEN, BLOOD 52 mg/dL (7-18)
[2022-03-01] MEDS: APIXABAN 5 MG TABLET PO SCH ×2 (09:00→18:03)
[2022-03-01 09:26] LABS: CARBON DIOXIDE 23 mmol/L (21-32); CHLORIDE 121 mmol/L (98-107); POTASSIUM 3.8 mmol/L (3.5-5.1)
--- NOTE | 2022-03-01 09:41 | NUR ---
RN NOTES BEDSIDE MONITOR AND MANUAL BP SHOWS BP 52/32, GET NEW ORDER NS BLOUSE TO INFUSE PER DR ANTONIO. ORDER TAKEN AND CARRIED OUT.
[2022-03-01 09:46] LABS: SODIUM SERUM 157 mmol/L (136-145)
--- NOTE | 2022-03-01 09:53 | NUR ---
RT ABG at 756 cancelled because of duplicate order.
--- NOTE | 2022-03-01 10:00 | NUR ---
rn notes patient with progressive hypoxemia and hypotension although with stable chest x-ray. Left pleural effusion Right lower extremity DVT, positive lower extremity Doppler, Non-ST elevation myocardial infarction, Dyslipidemia, Hypernatremia and renal insufficiency per production line worker order Plan is : Continue with oxygen titration follow-up ABG IV fluid rehydration free water replacement follow-up chemistries, screening blood cultures, continue dexamethasone await cortisol level, presently on full anticoagulation for lower extremity DVT.
[2022-03-01] MEDS: PHENYLEPHRINE 50 MG in IV NS 0.9% 245 ML IV PRN ×2 (10:41→21:07)
--- NOTE | 2022-03-01 10:41 | NUR ---
RN NOTES STARTED NEOSYNEPHRINE 0.5 MG/KG/MIN AT THIS TOME BP WAS 79/ 25, P-111. WILL FOLLOW UP.
[2022-03-01 11:05] LABS: BAND % (MANUAL) 23 % (0.0-5.0); MONOCYTES % (MANUAL) 10 % (0-11.0); NEUTROPHILS % (MANUAL) 60 (42-76)
[2022-03-01 11:06] LABS: LYMPHOCYTES % (MANUAL) 7 % (16-48)
[2022-03-01] MEDS: IV D5W 1,000 ML IV PRN ×2 (11:40→18:06)
--- NOTE | 2022-03-01 13:15 | NUR ---
RN NOTES GET LACTIC ACID LEVEL 5.5 , NOTIFIED HOSPITALIST Dr PALENCIA AND GET NEW ORDER TO REPEAT @1800 ORDER TAKEN AND CARRIED OUT. INFUSING D5W @ 125 ML/HR, AND NEOSYNEPHRINE @1 MCG/KG/MIN. BP- 100/55, P-98, MAP IS 71. WILL FOLLOW UP
--- NOTE | 2022-03-01 16:22 | NUR ---
rn notes get new order Dr Weir insert NGT, order taken and carried out.
--- NOTE | 2022-03-01 16:49 | NUR ---
rn notes get lactic acid resullt at this time 3.[address] Weir for result, no new order.
--- NOTE | 2022-03-01 18:00 | NUR ---
RN NOTES PATIENT UNABLE TO OPEN EYES, BUT FOLLOW COMMAND, DUE MEDICATION ADMINISTERED, PATIENT NPO, ON VENTURT MASK. INFUSING NEOSYNEPHRINE 1.5 MCG/KG/MIN, AND D5W @125 ML/HR ON SAMIR MIDLINER INTACT. URING OUTPUT WAS 50ML ON CANDOM CATH.ASSIST TURN AND REPOSTION Q 2 HR. ENDORED ONCOMING NURSE FOLLOW PLAN OF CARE.
--- NOTE | 2022-03-01 19:00 | NUR ---
travel registered nurse nicu. antione upper and lower extremity cold. saturation bed side monitor showing very low. pt is not bluish the pt, sat is 94%. color. now transport monitor connected to bed side monitor. will continue to monitor vitals
--- NOTE | 2022-03-01 21:51 | NUR ---
curriculum coordinator. initial assessment. received the pt rest in bed. open eyes. does not follow commands. antione upper and lower extremity flaccid. iv rt upper arm mid line, oxygen venturi mask on. sat 94%. no acute distress noted. cafeteria monitor showing a fib. rt nare ngt intact. condom catheter intact. sharmin 1.5mcg/kg/min, ivf d5w 125 ml/h. hob elevated. antione upper and lower extremity flaccid. will continue to monitor vitals.
[2022-03-02] VITALS: BP_SYST 100; BP_SYST 110; BP_DIAS 35; BP_DIAS 70
[2022-03-02] MEDS: METOPROLOL TARTRATE 50 MG TABLET PO SCH
[2022-03-02 00:15] LABS: ABG BASE EXCESS -11.1 mmol/L; ABG OXYGEN SATURATION 88.1 % (92.0-98.5); ABG PCO2 24.6 mmHg (35.0-45.0); ABG PH 7.335 (7.350-7.450); ABG PO2 63.3 mmHg (75.0-100.0); AaDO2 337.4 mmHg; COHb 0.5 % (0.5-1.5); MetHb 0.4 % (0.0-1.5); O2Hb 87.3 % (94.0-97.0); SITE, ABG Right Radial
[2022-03-02] MEDS ORDERED: VASOPRESSIN INJ 20 UNIT/ML VIAL ONE (00:20)
--- NOTE | 2022-03-02 00:20 | NUR ---
RT Pt placed on High Flow Nasal Cannula on 40L, 100% FIO2 per MD order post ABG results. Addendum: 03/02/22 at 2 by NILA TREJO RT Amended: Links added.
--- NOTE | 2022-03-02 00:25 | NUR ---
MARKETING SALES REPRESENTATIVE. PT NOTED TROUBLE BREATHING ABG DONE, JOSE AUDIO VISUAL AIDS DIRECTOR AT BED SIDE. BP 61/29.JARET MAX OUT. VASOPRESSIN STARTED. HIGH FLOW STARTED.WILL CONTINUE TO MONITOR
[2022-03-02] MEDS ORDERED: VASOPRESSIN INJ 40 UNIT in IV NS 0.9% 38 ML IV PRN (00:30)
[2022-03-02] MEDS ORDERED: SODIUM BICARBONATE SYR 50 MEQ/50 ML DISP.SYRIN IV ONE (00:30)
[2022-03-02] MEDS ORDERED: DIGOXIN INJ 0.5 MG/2 ML AMPUL IV ONE (00:30)
[2022-03-02] MEDS ORDERED: SODIUM BICARBONATE SYR 50 MEQ/50 ML DISP.SYRIN ONE (00:31)
[2022-03-02] MEDS ORDERED: DIGOXIN INJ 0.5 MG/2 ML AMPUL ONE (00:32)
--- NOTE | 2022-03-02 01:15 | NUR ---
EXPLOSIVES WORKER. ACNP JOSE AT BED SIDE. PT IS DESATURATED NOT RESPONDING. ER MD CAME AND INTUBATED. AT 0135. 0140 HEART RATE WENT DOWN FOLLOWED BY A SYSTOLE. 0141 CODE BLUE ACTIVATED. SEE CODE BLUE SHEET. HEART RATE BACK AT 0149 NOTIFIED GIRL FRIEND FREDO.
--- NOTE | 2022-03-02 01:35 | NUR ---
RT Pt orally intubated by ER with 7.5 ETT secured at 28cm at the lip line. Color change noted on CO2 detector. Mist in tube noted. Equal breaths sounds and even chest rise noted. Pt placed on mech vent on ordered settings, AC mode, rate 20, VT 500, FIO2 100%, PEEP +5. Alarms set and audible. Vent plugged into red outlet. Ambubag at bedside. Will cont to monitor.
[2022-03-02 02:00] VITALS: BP_SYST 62; BP_SYST 65; BP_DIAS 42; BP_DIAS 45
[2022-03-02] MEDS ORDERED: NOREPINEPHRINE 4 MG/4 ML AMPUL IV ONE (02:12)
--- NOTE | 2022-03-02 02:15 | NUR ---
CAR TOP BOLTER. HEART RATE WENT DOWN TO [facility]. ACTIVATED CODE BLUE . SEE CODE BLUE SHEET. POUNCED AT 0221. NOTIFIED [facility]. SPOKE PERSON ASCENCION. BODY RELEASED. CASE #[id number]. NOTIFIED GIRL FRIEND FREDO.
[2022-03-02] MEDS ORDERED: ROCURONIUM BROMIDE 50 MG/5 ML IV ONE (02:20)
[2022-03-02] MEDS ORDERED: ETOMIDATE 2 MG/ML VIAL IV ONE (02:20)
[2022-03-02] MEDS ORDERED: EPINEPHRINE (1:10,000) SYRINGE 1 MG/10 ML DISP.SYRIN IVP ONE (02:20)
[2022-03-02] MEDS ORDERED: D5W IV PRN (02:30)
[2022-03-02] MEDS ORDERED: NOREPINEPHRINE IV PRN (02:30)
--- NOTE | 2022-03-02 04:00 | NUR ---
TECHNICAL MGR. POST MORTEM CARE GIVEN. BODY SEND TO [facility].
--- NOTE | 2022-03-02 11:34 | NUR ---
@ 1120 SPOKE W/ PT'S BROTHER MATT PRATT [phone] & STATED HAVEN'T SPOKE W/ HIS BROTHER OVER 5 YEARS & STATED NOT IN GOOD TERMS W/ HIM. CAMILO CARO, ADMIN NOTIFIED. HE WANTS THE GIRLFRIEND FREDO LI [phone] TO DECIDE & STATED THAT SHE CAN CALL ME ANYTIME. MESSAGE RELAYED TO FREDO. PER FREDO, SHE WAS THE GIRLFRIEND OF THE DECEDENT FOR PAST 12 YEARS & WILL TAKE ABOUT THE DECEDENT'S SERVICES.
== END 2022-03-02 02:21 | DRG 853 ==
LOC: ER 00:16 → ICU 01:39 → TELE1 02-25 17:18 → TELE-TD 03-01 01:41 → TELE1 03-01 04:39 → ICU 03-01 07:55
PROVIDERS: ADMIT Student in an Organized Health Care Education/Training Program; ATTEND Internal Medicine
PROC: 05HB33Z Insertion of Infusion Device into Right Basilic Vein, Percutaneous Approach (ICD-10-PCS; principal; 2022-02-24)
PROC: 0JBP0ZZ Excision of Left Lower Leg Subcutaneous Tissue and Fascia, Open Approach (ICD-10-PCS; 2022-02-25)
PROC: 0JBR0ZZ Excision of Left Foot Subcutaneous Tissue and Fascia, Open Approach (ICD-10-PCS; 2022-02-25)
PROC: 0BH17EZ Insertion of Endotracheal Airway into Trachea, Via Natural or Artificial Opening (ICD-10-PCS; 2022-03-02)
DX: A41.9 Sepsis, unspecified organism (principal); G93.41 Metabolic encephalopathy; L89.313 Pressure ulcer of right buttock, stage 3; L89.523 Pressure ulcer of left ankle, stage 3; I21.A1 Myocardial infarction type 2; I50.43 Acute on chronic combined systolic (congestive) and diastolic (congestive) heart failure; R65.21 Severe sepsis with septic shock; D68.59 Other primary thrombophilia; E44.1 Mild protein-calorie malnutrition; N17.9 Acute kidney failure, unspecified; J90 Pleural effusion, not elsewhere classified; E87.2 Acidosis; E87.0 Hyperosmolality and hypernatremia; J98.11 Atelectasis; I82.513 Chronic embolism and thrombosis of femoral vein, bilateral; I48.91 Unspecified atrial fibrillation; E86.0 Dehydration; K21.9 Gastro-esophageal reflux disease without esophagitis; Z20.822 Contact with and (suspected) exposure to COVID-19; S81.802A Unspecified open wound, left lower leg, initial encounter; X58.XXXA Exposure to other specified factors, initial encounter; Y92.9 Unspecified place or not applicable; Z95.0 Presence of cardiac pacemaker; E11.22 Type 2 diabetes mellitus with diabetic chronic kidney disease; N18.9 Chronic kidney disease, unspecified; Z79.82 Long term (current) use of aspirin; Z79.01 Long term (current) use of anticoagulants; Z79.899 Other long term (current) drug therapy; L89.896 Pressure-induced deep tissue damage of other site; M62.50 Muscle wasting and atrophy, not elsewhere classified, unspecified site; R74.01 Elevation of levels of liver transaminase levels; Z86.16 Personal history of COVID-19; E88.09 Other disorders of plasma-protein metabolism, not elsewhere classified; K82.8 Other specified diseases of gallbladder; E80.6 Other disorders of bilirubin metabolism; K76.89 Other specified diseases of liver; R62.7 Adult failure to thrive; E78.5 Hyperlipidemia, unspecified; F17.200 Nicotine dependence, unspecified, uncomplicated
CPT/HCPCS: 36410; 36415; 36600; 71045-TC; 76700-TC; 78226; 80048-TC; 80053-TC; 80061-TC; 80076-TC; 81001; 82533; 82728-TC; 82803-TC; 82962-TC; 83540-TC; 83605-TC; 83690-TC; 83735-TC; 84100-TC; 84439-TC; 84443-TC; 84484-TC; 85025-TC; 85378-TC; 85730-TC; 86140-TC; 87040-TC; 87081-TC; 92526; 92611-TC; 92950-TC; 93307-TC; 93970-TC; 94002-TC; 94760-TC; 94799-TC; A4349; A6248; A6253; A6403; A9537; C9803; G0378; J0171; J1100; J1160; J1650; J2370; J3490; J7030; J7040; J7042; J7050; J7060; J7070